=== PATIENT | female | born 1975 | race Caucasian/White ===

== ENCOUNTER 2017-10-06 09:10 | Outpatient (CLI) | payer OTHER ==
[~2017-10-06 09:10] MED LIST: KEPPRA XR500 MG; SYNTHROID300 MCG
== END 2017-10-06 14:25 | disposition home or self-care (01) ==
LOC: TOM 09:10
DX: J32.4 Chronic pansinusitis (principal)

== ENCOUNTER 2017-12-25 14:19 | Emergency (ER) | payer OTHER ==
[~2017-12-25] VITALS: Ht 165.1 cm; Wt 46.3 kg
== END 2017-12-25 22:56 | disposition home or self-care (01) ==
LOC: ER 14:19
DX: G43.909 Migraine, unspecified, not intractable, without status migrainosus (principal)